=== PATIENT | male | born 1965 | race Caucasian/White ===

== ENCOUNTER 2017-10-01 13:48 | Inpatient (IN) | payer BC ==
[2017-10-01 14:26] LABS: #Basophils 0.1 thou/uL (0.0-0.2); #Eosinphils 0.4 thou/uL (0.0-0.7); #Monocytes 0.9 thou/uL (0.11-0.59); #Neutrophils 6.5 thou/uL (1.40-6.50); %Basophils 1.2 % (0.0-1.0); %Eosinophils 3.6 % (0.0-10.0); %Lymphocytes 33.3 % (21.0-51.0); %Monocytes 7.4 % (0.0-10.0); Hematocrit 45.4 % (42.0-52.0); Mean Platelet Volume 7.1 fL (7.4-10.4); Red Blood Cell (RBC) Count 4.59 mill/uL (4.70-6.10); White Blood Cell (WBC) Count 11.9 thou/uL (4.8-10.8)
[2017-10-01 14:47] LABS: Lactic Acid - Sepsis 1.6 mmol/L (0.5-2.2)
--- NOTE | 2017-10-01 14:51 | RAD ---
SINGLE VIEW OF THE CHEST: COMPARISON: None. HISTORY: Atrial fibrillation of new onset. FINDINGS: Single view of the chest shows a normal sized cardiomediastinal silhouette. There is no evidence of c onsolidation, mass, or pleural effusion. Mild degenerative changes are seen in the spine. IMPRESSION: No evidence of acute cardiopulmonary disease. POS: [facility]
[2017-10-01 14:52] LABS: ALT (SGPT) 16 U/L (8-55); AST (SGOT) 20 U/L (5-34); Alkaline Phosphatase 71 U/L (40-150); Anion Gap 15 mmol/L (10-20); BUN (Urea Nitrogen) 9 mg/dL (8.4-25.7); Bilirubin, Total 0.4 mg/dL (0.2-1.2); CK (CPK) 129 U/L (30-200); Calc. Creatinine Clearance 0 mL/min (70-130); Calcium 9.9 mg/dL (7.8-10.44); Carbon Dioxide 27 mmol/L (22-29); Chloride 103 mmol/L (98-107); Estimated GFR-MDRD Greater than 90; Globulin 3.2 g/dL (2.4-3.5); Protein, Total 7.9 g/dL (6.0-8.3)
[2017-10-01 14:57] LABS: Troponin I Less than 0.010 ng/mL (< 0.028)
[2017-10-01] MEDS ORDERED: Enoxaparin Sodium 100 MG/ML SYRINGE ONE (15:41)
--- NOTE | 2017-10-01 17:24 | HP ---
PRIMARY CARE PHYSICIAN: Dr. Diandra Krause. REASON FOR ADMISSION: New onset atrial fibrillation with rapid ventricular response. HISTORY OF PRESENT ILLNESS: A 52-year-old male with history of dyslipidemia, gastroesophageal reflux disease, and paranoia, who was sent by primary care physician for new onset atrial fibrillation. The patient reports that for the last 2 or 3 days, he was experiencing intermittent dizziness spell. He was not feeling any palpitations or chest pain, but he was feeling dizziness. He did not have an y syncopal episode. He denies any orthopnea, PND, leg swelling. He denies any dyspnea on exertion. His symptoms was keep getting worse and that is why he saw his primary care physician today and at t hat time primary care physician did EKG and found with atrial fibrillation with rapid ventricular res ponse and he was directed to go to the emergency room. When he came to the emergency room, he was hy pertensive and was in atrial fibrillation with RVR with heart rate 139. He required Cardizem drip an d after Cardizem drip, his rate was under control. The patient reports that 10 years ago, he had similar type of problem. At that time, he required abl ation by Dr. Gregorio. The patient is periodically following Dr. Keith. The patient denies any exc essive caffeinated products. The patient denies any fever or chills. He denies any thyroid problems . He reports that lately he was experiencing sinus problem, but he denies taking any Claritin-D. The patient denies any urinary tract infection symptoms. He denies any constipation, diarrhea, melen a, hematochezia. He denies any focal motor symptoms. He denies any previous history of diabetes or stroke or TIA. REVIEW OF SYSTEMS: The following complete review of systems was negative, unless otherwise mentioned in the HPI or below: Constitutional: Weight loss or gain, ability to conduct usual activities. Skin: Rash, itching. Eyes: Double vision, pain. ENT/Mouth: Nose bleeding, neck stiffness, pain, tenderness. Cardiovascular: Palpitations, dyspnea on exertion, orthopnea. Respiratory: Shortness of breath, wheezing, cough, hemoptysis, fever or night sweats. Gastrointestinal: Poor appetite, abdominal pain, heartburn, nausea, vomiting, constipation, or diarrh ea. Genitourinary: Urgency, frequency, dysuria, nocturia. Musculoskeletal: Pain, swelling. Neurologic/Psychiatric: Anxiety, depression. Allergy/Immunologic: Skin rash, bleeding tendency. Please see my HPI for pertinent positives and negatives. All other review of system reviewed and neg ative except as mentioned in the HPI. PAST MEDICAL HISTORY: History of atrial fibrillation in the past required ablation, gastroesophageal reflux disease, dyslipidemia. PAST PSYCHIATRIC HISTORY: Anxiety and depression, paranoia. PAST SURGICAL HISTORY: Cardiac ablation for atrial fibrillation. SOCIAL HISTORY: Patient drinks 3 beers on a daily basis. He smokes about 1 pack per day. He denies any illicit drug abuse. FAMILY HISTORY: Positive for coronary artery disease to both parents. ALLERGIES: No known drug allergies. CURRENT HOME MEDICATIONS: Risperidone 4 mg p.o. daily, lorazepam 1 mg p.o. daily and Lipitor 40 mg p .o. daily, Nexium 40 mg p.o. daily. EMERGENCY ROOM COURSE: Patient is given Lovenox 1 mg per kg, aspirin 324 mg and Cardizem 20 mg bolus and 5 mg per hour drip was started. PHYSICAL EXAMINATION: VITAL SIGNS: On arrival, blood pressure 164/92, pulse 139 and irregular, respiratory rate 18, temper ature 98.2, saturation 97% on room air, weight 88.4 kilograms. GENERAL: Patient is currently alert, oriented, no acute distress. HEENT: Head is normocephalic, atraumatic. Eyes: Pupils round, reactive to light. Extraocular musc les intact. ENT: Oropharynx within normal limits. Moist mucous membranes. No oral lesions. No pharyngeal eryt marlys, no exudate. NECK: Supple, no JVD, no thyromegaly, no carotid bruit. LUNGS: Clear to auscultation without any rhonchi or rales. CARDIAC: S1 and S2 irregularly irregular. No murmur, no gallop, no rub. ABDOMEN: Soft, bowel sounds present, nontender, nondistended. No organomegaly, no mass, no suprapub ic tenderness. BACK: Unremarkable, no CVA tenderness. EXTREMITIES: Upper extremity passive movement of all joints are normal. Lower extremities: No bunny a. Good peripheral pulsation. SKIN: No skin rash. HEMATOLOGICAL: No lymphadenopathy. PSYCHIATRIC: Normal affect. NEUROLOGIC: The patient is moving all 4 limbs. Cranial nerves II-XII intact. No focal neurological deficit noted. SIGNIFICANT LABS: EKG based on my review, atrial fibrillation with rapid ventricular response. Ches t x-ray based on my review, no acute cardiopulmonary process. CBC: WBC 11.9, hemoglobin 15.3, plate lets 359, MCV 99.0, BMP: Sodium 141, potassium 3.6, chloride 103, carbon dioxide 27, BUN 9, creatini ne 0.82, anion gap 15, glucose 119, calcium 9.9. Lactic acid 1.6. LFT: AST 20, ALT 16, alkaline ph osphatase 71, albumin 4.7. CK 129, CK-MB 1.5, troponin I less than 0.010. BNP 61.5. TSH 1.55. ASSESSMENT AND PLAN: 1. Atrial fibrillation with rapid ventricular response. This patient has a remote history of atrial arrhythmia, requiring ablation. At this point, the patient has dizziness and atrial fibrillation wi th RVR. The patient is not on any specific medication. Based on CHADS2 score, patient has one or tw o point. At this point, we will start Lovenox 1 mg per kg subcu twice daily for anticoagulation ther apy. Upon discharge, we will consider chronic anticoagulation therapy with Eliquis. We will also co ntinue aspirin 325 mg p.o. daily. The patient's thyroid function test is normal. We will consult Ca rdiology per patient's request. We will obtain echocardiography and will rule out acute coronary syn drome with serial cardiac enzymes. We will monitor on telemetry floor. We will continue Cardizem dr ip at 5 mg per hour. 2. Gastroesophageal reflux disease. We will continue Protonix 40 mg p.o. daily. 3. Dyslipidemia. We will continue Lipitor 40 mg p.o. at bedtime and check lipid profile tomorrow mo rning. 4. Anxiety, depression with paranoia, we will continue risperidone 4 mg p.o. daily and Ativan 1 mg p .o. q.4 hourly p.r.n. 5. Tobacco abuse disorder. Smoking cessation counseling given. Healthy lifestyle measures discusse d with the patient. 6. Alcohol use. Patient is advised to avoid alcohol products. 7. Deep venous thrombosis prophylaxis. Patient is already on full dose of Lovenox therapy. 8. Gastrointestinal prophylaxis. Protonix 40 mg p.o. daily. CODE STATUS: The patient is FULL CODE. The patient is making his own decisions. Disposition plan based on clinical course. We are expecting patient's stay in hospital more than 2 m idnights. Plan of care discussed with the patient and family member at bedside in the emergency room in detail.
[2017-10-01 17:59] LABS: Troponin I Less than 0.010 ng/mL (< 0.028)
[2017-10-01] MEDS ORDERED: Ondansetron HCl/PF 4 MG/2 ML Vial IVP PRN (18:18)
[2017-10-01] MEDS ORDERED: Milk Of Magnesia 30 ML UDCUP PO PRN (18:18)
[2017-10-01] MEDS ORDERED: Lorazepam 1 MG TAB PO PRN (18:18)
[2017-10-01] MEDS ORDERED: Loperamide HCl 2 MG CAP PO PRN (18:18)
[2017-10-01] MEDS ORDERED: hydrALAZINE 20 MG/ML VIAL SLOW IVP PRN (18:18)
[2017-10-01] MEDS ORDERED: HYDROcodone/Acetaminophen 5/325 mg Tablet PO PRN (18:18)
[2017-10-01] MEDS ORDERED: Loratadine 10 MG TAB PO PRN (18:18)
[2017-10-01] MEDS ORDERED: Zolpidem Tartrate 5 MG TAB PO PRN (18:18)
[2017-10-01] MEDS ORDERED: Sodium Chloride 0.65% Nasal 44 ML BOT EA NARE PRN (18:18)
[2017-10-01] MEDS ORDERED: Artificial Tears 18 DROP/0.9 ML EA EYE PRN (18:18)
[2017-10-01] MEDS ORDERED: Mag-Al 1200 mg/1200 mg/30 ML UDCUP PO PRN (18:18)
[2017-10-01] MEDS ORDERED: Diabetic Tussin 200 MG/10 ML UDCUP PO PRN (18:18)
[2017-10-01] MEDS ORDERED: Ondansetron ODT 4 MG TAB PO PRN (18:18)
[2017-10-01] MEDS ORDERED: Senokot 8.6 MG TAB PO PRN (18:18)
[2017-10-01] MEDS ORDERED: Acetaminophen 325 MG TAB PO PRN (18:18)
[2017-10-01] MEDS ORDERED: Eucerin (Mineral Oil/Petrolatum,White) 30 gm Jar TOP PRN (18:18)
[2017-10-01] MEDS ORDERED: Chloraseptic Spray 180 ml Bottle PO PRN (18:18)
[2017-10-01] MEDS: Atorvastatin Calcium 40 MG TAB PO SCH (20:44)
[2017-10-01 20:47] LABS: Troponin I Less than 0.010 ng/mL (< 0.028)
[2017-10-02 00:26] LABS: Bilirubin Negative (Negative); Blood, Urine Negative (Negative); Glucose, Urine (Dipstick) Negative (Negative); Ketone, Urine Negative (Negative); Nitrite Negative (Negative); Protein, Urine (Dipstick) Negative (Neg-Trace); Urobilinogen 0.2 mg/dL (0.2-1.0)
[2017-10-02 00:29] LABS: Bacteria/HPF None Seen HPF (None Seen); Hyaline Casts/LPF 0-3 HYALINE CAST LPF (0-3 Hyaline); RBC/HPF 0-3 HPF (0-3); Squamous Epithelial None Seen HPF (0-3); WBC/HPF None Seen HPF (0-3)
[2017-10-02 00:58] LABS: Amphetamine Not Detected (NotDetected); Methadone Not Detected (NotDetected); Methamphetamine Not Detected (NotDetected)
[2017-10-02 04:52] LABS: #Basophils 0.1 thou/uL (0.0-0.2); #Eosinphils 0.5 thou/uL (0.0-0.7); #Lymphocytes 3.6 thou/uL (1.20-3.40); #Monocytes 0.8 thou/uL (0.11-0.59); #Neutrophils 6.2 thou/uL (1.40-6.50); %Basophils 0.6 % (0.0-1.0); %Eosinophils 4.3 % (0.0-10.0); %Lymphocytes 32.6 % (21.0-51.0); %Monocytes 7.1 % (0.0-10.0); Hematocrit 41.7 % (42.0-52.0); Mean Platelet Volume 7.4 fL (7.4-10.4); Red Blood Cell (RBC) Count 4.22 mill/uL (4.70-6.10); White Blood Cell (WBC) Count 11.1 thou/uL (4.8-10.8)
[2017-10-02 05:06] LABS: Anion Gap 11 mmol/L (10-20); BUN (Urea Nitrogen) 13 mg/dL (8.4-25.7); Calc. Creatinine Clearance 143 mL/min (70-130); Calcium 9.4 mg/dL (7.8-10.44); Carbon Dioxide 24 mmol/L (22-29); Chloride 106 mmol/L (98-107); Cholesterol 155 mg/dl (< 200 Desired); Estimated GFR-MDRD Greater than 90; LDL Cholesterol, Calculated 71 mg/dL
[2017-10-02 05:44] VITALS: BMI 22.1
[2017-10-02] MEDS ORDERED: Aspirin 325 MG TAB PO SCH (09:00)
[2017-10-02] MEDS ORDERED: risperiDONE 1 MG TAB PO SCH ×2 (09:00→21:00)
--- NOTE | 2017-10-02 10:09 | PDOC.PN ---
- Subjective Encounter Start Date: 10/02/17 Encounter Start Time: 08:00 -: old records requested/rev Patient seen and examined. No new complaints. No overnight events pt asking for amoxycilline for his sinus problem he converted to NSR at 4 AM - Objective Resuscitation Status: Resuscitation Status FULL:Full Resuscitation MAR Reviewed: Yes Vital Signs & Weight: Vital Signs (12 hours) Temp Pulse Resp BP Pulse Ox 10/02/17 04:00 98.5 F 75 19 104/69 99 10/02/17 00:00 74 16 105/68 Weight Weight 181 lb 12.8 oz I&O: 10/01/17 10/02/17 10/03/17 06:59 06:59 06:59 Intake Total 540 Output Total 450 Balance 90 Result Diagrams: 10/02/17 04:19 10/02/17 04:19 EKG Reviewed by me: Yes (NSR) Phys Exam - Physical Examination Constitutional: NAD HEENT: PERRLA, moist MMs, sclera anicteric Neck: no JVD, supple Respiratory: no wheezing, no rales, no rhonchi Cardiovascular: RRR, no significant murmur, no rub Gastrointestinal: soft, non-tender, no distention Musculoskeletal: no edema, pulses present Neurological: non-focal, normal sensation, moves all 4 limbs Lymphatic: no nodes Psychiatric: normal affect, A&O x 3 Skin: no rash, normal turgor Dx/Plan (1) Atrial fibrillation with RVR Code(s): I48.91 - UNSPECIFIED ATRIAL FIBRILLATION Status: Acute Comment: converted to NSR (2) Alcohol abuse Code(s): F10.10 - ALCOHOL ABUSE, UNCOMPLICATED Status: Chronic (3) Anxiety and depression Code(s): F41.8 - OTHER SPECIFIED ANXIETY DISORDERS Status: Chronic (4) Diabetes type 2, controlled Code(s): E11.9 - TYPE 2 DIABETES MELLITUS WITHOUT COMPLICATIONS Status: Chronic (5) Paranoia Code(s): F22 - DELUSIONAL DISORDERS Status: Chronic (6) Tobacco abuse Code(s): Z72.0 - TOBACCO USE Status: Chronic - Plan cont current plan of care, plan discussed w/ family * will start cardizem CD 120 mg po daily * will wean off cardizem drip today and observe another 24 hour off the drip on monitor * medication reviewed as below * symptomatic treatment * echo pending * cardiology input pending * otherwise stable * anticoagulation machine long goods helper will defer to cardiology * discussed with . Review of Systems - Review of Systems ENT: negative: Ear Pain, Ear Discharge, Nose Pain, Nose Discharge, Nose Congestion, Mouth Pain, Mouth Swelling, Throat Pain, Throat Swelling, Other Respiratory: negative: Cough, Dry, Shortness of Breath, Hemoptysis, SOB with Excertion, Pleuritic Pain, Sputum, Wheezing Cardiovascular: negative: Chest Pain, Palpitations, Orthopnea, Paroxysmal Noc. Dyspnea, Edema, Light Headedness, Other Gastrointestinal: negative: Nausea, Vomiting, Abdominal Pain, Diarrhea, Constipation, Melena, Hematochezia, Other Genitourinary: negative: Dysuria, Frequency, Incontinence, Hematuria, Retention , Other Musculoskeletal: negative: Neck Pain, Shoulder Pain, Arm Pain, Back Pain, Hand Pain, Leg Pain, Foot Pain, Other Skin: negative: Rash, Lesions, Arsh, Bruising, Other - Medications/Allergies Allergies/Adverse Reactions: Allergies Allergy/AdvReac Type Severity Reaction Status Date / Time No Known Allergies Allergy Verified 10/01/17 18:13 Medications: Current Medications Acetaminophen (Tylenol) 650 mg PO Q4H PRN PRN Reason: Headache/Fever or Pain Hydrocodone Bitart/Acetaminophen (Spur 5/325) 1 tab PO Q4H PRN PRN Reason: Moderate Pain (4-6) Al Hydroxide/Mg Hydroxide (Maalox) 30 ml PO Q6H PRN PRN Reason: Heartburn or Indigestion Amoxicillin (Amoxil) 500 mg PO TID [facility] Artificial Tears (Tears Naturale) 0 drop EA EYE PRN PRN PRN Reason: Dry Eyes Aspirin (Aspirin) 325 mg PO DAILY [facility] [place] Last Admin: 10/02/17 09:54 Dose: 325 mg Atorvastatin Calcium (Lipitor) 40 mg PO HS [facility] [place] Last Admin: 10/01/17 20:44 Dose: 40 mg Guaifenesin (Robitussin Sf) 200 mg PO Q4H PRN PRN Reason: Cough Hydralazine HCl (Apresoline) 10 mg SLOW IVP Q4H PRN PRN Reason: Systolic BP > 180 Diltiazem HCl 125 mg/ Sodium (Chloride) 125 mls @ 5 mls/hr IVPB INF HARMAN; 5 MG/ HR PRN Reason: Protocol Loperamide HCl (Imodium) 2 mg PO PRN PRN PRN Reason: Diarrhea/Loose Stools Loratadine (Claritin) 10 mg PO DAILYPRN PRN PRN Reason: Sinus Symptoms Lorazepam (Ativan) 1 mg PO HS [facility] [place] Magnesium Hydroxide (Milk Of Magnesium) 30 ml PO DAILYPRN PRN PRN Reason: Constipation Metformin HCl (Glucophage) 500 mg PO HS [facility] [place] Mineral Oil/White Petrolatum (Eucerin Cream) 0 gm TOP BIDPRN PRN PRN Reason: Dry Skin Ondansetron HCl (Zofran Odt) 4 mg PO Q6H PRN PRN Reason: Nausea/Vomiting Ondansetron HCl (Zofran) 4 mg IVP Q6H PRN PRN Reason: Nausea/Vomiting Pantoprazole Sodium (Protonix) 40 mg PO DAILY [facility] [place] Last Admin: 10/02/17 09:54 Dose: 40 mg Phenol (Chloraseptic [place] 180 Ml Bot) 0 ml PO PRN PRN PRN Reason: Sore Throat Risperidone (Risperidone) 1 mg PO HS [facility] [place] Senna (Senokot) 2 tab PO HSPRN PRN PRN Reason: Constipation Sodium Chloride ([place] Nasal [place] 0.65%) 0 ml EA NARE QIDPRN PRN PRN Reason: Nasal Congestion Sodium Chloride (Flush - Normal Saline) 10 ml IVF Q12HR [facility] [place] Last Admin: 10/02/17 09:54 Dose: Not Given Sodium Chloride (Flush - Normal Saline) 10 ml IVF PRN PRN PRN Reason: Saline Flush Zolpidem Tartrate (Ambien) 5 mg PO HSPRN PRN PRN Reason: Insomnia
--- NOTE | 2017-10-02 14:05 | CON ---
DATE OF CONSULTATION: 10/02/2017 HISTORY OF PRESENT ILLNESS: Raymon Aviles is a 52-year-old white male that I apparently saw approximately 10 years ago for evaluation of supraventricular tachycardia. Those records are unavailable at this time. He ultimately underwent radiofrequency ablation of his SVT by Dr. Gregorio in 08/2007. He has not had any documented arrhythmias since that time. Over the last 2-3 days, he has had upper respiratory infection and he states that he has a sinus infection. He also has noted over the last 2-3 days, he had episodes of intermittent extreme lightheadedness. He feels as if he might blackout. Ultimately went to see his primary care physician yesterday and was found to be in atrial fibrillation with fast ventricular response. He was referred to the emergency room. He was started on a Cardizem drip which slowed his rate and ultimately at 4:00 a.m. this morning, he converted to sinus rhythm. He denied any palpitations, chest pain, shortness of breath, his only symptom was lightheadedness. He also denies any fevers, chills or rigors. He denies any cough. He also denies taking any decongestants or vasoactive nasal sprays. He does use Flonase at home. PAST MEDICAL HISTORY: Hypercholesterolemia, diabetes, GERD, anxiety, depression , and paranoia. MEDICATIONS: At home include atorvastatin 40 mg at bedtime, Nexium 40 mg at bedtime, Ativan 1 mg at bedtime, metformin 500 mg at bedtime, and risperidone 1 mg at bedtime. ALLERGIES: None. OPERATIONS: Nothing except radiofrequency ablation of his supraventricular tachycardia in 08/2007. SOCIAL HISTORY: He smokes 1 pack per day. He drinks 3 beers per day. FAMILY HISTORY: Mother of myocardial infarction at age 72. REVIEW OF SYSTEMS: Twelve point review of systems otherwise unremarkable. PHYSICAL EXAMINATION: VITAL SIGNS: 110/69, pulse 67 and regular. HEENT: PERRL. NECK: Supple. CHEST: Clear. CARDIAC: S1 and S2 are normal, without any S3, S4 or murmurs. Carotid upstrokes are normal without bruits. ABDOMEN: Normal bowel sounds, without tenderness or organomegaly. EXTREMITIES: Revealed no clubbing, cyanosis or edema. NEUROLOGIC: Grossly intact. SKIN: Warm and dry. IMAGING DATA AND LABORATORY DATA: EKG reveals atrial fibrillation with fast ventricular response of 136 per minute. Hemoglobin 14.0, hematocrit 41.7, white count 11,100, and platelets 321,000. Sodium 137, potassium 4.0, chloride 106, carbon dioxide 24, BUN 13, creatinine 0.74. Cardiac enzymes are negative x3. Cholesterol 155, triglycerides 203, HDL 43, and LDL 71. TSH is normal. Glucose up to 119. IMPRESSION: 1. New onset atrial fibrillation. 2. History of supraventricular tachycardia ablation in 08/2007. 3. Diabetes. 4. Hypercholesterolemia. 5. Smoker. 6. Positive family history. 7. ETOH use, 3 beers per day. 8. Anxiety, depression with paranoia. RECOMMENDATIONS: Mr. Aviles has been started on p.o. Cardizem and the Cardizem drip is being tapered. I do agree with anticoagulation at this point since he probably had atrial fibrillation for several days. He will be started on Xarelto 20 mg daily. He will be monitored for 1 more day and has felt that he could be discharged on 10/03/2017. MICKIE
[2017-10-02] MEDS: AMOXicillin 250 MG CAP PO SCH ×2 (14:56→21:45)
[2017-10-02] MEDS ORDERED: Rivaroxaban 10 MG TAB PO SCH (18:00)
[2017-10-02] MEDS ORDERED: metFORMIN 500 MG TAB PO SCH (21:00)
[2017-10-02] MEDS ORDERED: Lorazepam 1 MG TAB PO SCH (21:00)
[2017-10-02] MEDS ORDERED: Non-Formulary Item 1 EACH (Metformin Hcl [Metformin Hcl] 500 MG) PO SCH (21:00)
[2017-10-02] MEDS: Atorvastatin Calcium 40 MG TAB PO SCH (21:45)
[2017-10-03 07:39] VITALS: BP 111/74; TEMP 98
[2017-10-03] MEDS: AMOXicillin 250 MG CAP PO SCH (09:08)
--- NOTE | 2017-10-03 10:39 | DIS ---
DATE OF ADMISSION: 10/01/2017 DATE OF DISCHARGE: 10/03/2017 PRIMARY CARE PHYSICIAN: Dr. Dianrda Krause. DISCHARGE DISPOSITION: Home. PRIMARY DISCHARGE DIAGNOSIS: Atrial fibrillation with rapid ventricular response converted to normal sinus rhythm. SECONDARY DISCHARGE DIAGNOSES: Tobacco abuse, paranoia, diabetes type 2, anxiety, depression, alcoho l abuse. PRIMARY PROCEDURE/OPERATION: None. RADIOLOGICAL INVESTIGATION: Chest x-ray normal. Echocardiography showed normal EF. SIGNIFICANT LABORATORY DATA: WBC 11.1, hemoglobin 14.0, platelets 321. Sodium 137, potassium 4.0, B UN 13, creatinine 0.74, calcium 9.4, LDL 71, HDL 43. Cholesterol 155, triglycerides 203, TSH 1.55. Cardiac enzymes negative x3. Lactic acid 1.6. Urinalysis normal. Urine drug screen negative. DISCHARGE MEDICATIONS: Lipitor 40 mg p.o. at bedtime, Cardizem CD 120 mg p.o. daily, Nexium 40 mg p. o. at bedtime, Ativan 1 mg p.o. at bedtime, metformin 500 mg p.o. at bedtime, risperidone 1 mg p.o. a t bedtime and Xarelto 20 mg p.o. daily. CONTRAINDICATIONS: None. CODE STATUS: FULL CODE. INPATIENT CONSULTANTS: Dr. Neftaly Keith was consulted. TEST RESULTS PENDING ON DISCHARGE: None. ALLERGIES: No known drug allergy. DISCHARGE PLAN: Post hospital, the patient will follow up with Dr. Keith as instructed. HOSPITAL COURSE: A 52-year-old male with the above mentioned medical problem, who has history of atr ial fibrillation, required ablation 10 years ago and since then he was doing well up until for the la st couple of days he was experiencing dizziness and that is why he went to see primary care physician , who ordered EKG and patient was found with atrial fibrillation with RVR and that is why he was advi sed to go to the emergency room. In the emergency room, he was in atrial fibrillation with RVR. He required a Cardizem bolus and Cardizem drip. He was admitted to Telemetry floor. We did echocardiog cuco that came back normal. The patient was converted to normal sinus rhythm during night. Cardize m drip was discontinued. The patient was requiring anticoagulation therapy and that is why we prescr ibed Xarelto. Cardiology evaluated this patient while in hospital. At this point, the patient is in sinus rhythm. We are starting Cardizem CD head as well as we are also giving prescription for Xarel to. The patient is completely asymptomatic. Cardiology cleared him for discharge. He will follow up wit h primary care physician and Cardiology after discharge. Patient is seen and examined at bedside micheal mallory. Plan of care discussed with the family member. PHYSICAL EXAMINATION: VITAL SIGNS: Currently, temperature 98.0, pulse 74, blood pressure 111/74, respiratory rate 16, satu ration 94%. Weight 180 pounds. GENERAL: The patient is currently alert, awake, no acute distress. HEAD: Normocephalic, atraumatic. EYES: Pupils round, reactive to light. Extraocular muscle intact. ENT: Oropharynx within normal limits. Moist mucous membranes. No oral lesions. No pharyngeal eryt marlys. No exudate. NECK: Supple, no JVD, no thyromegaly, no carotid bruit. No jugular venous distention. LUNGS: Clear to auscultation without any rhonchi or rales. CARDIAC: S1, S2 regular without any murmur. ABDOMEN: Soft and benign. EXTREMITIES: No edema. NEUROLOGIC: Nonfocal examination. REVIEW OF SYSTEMS: Reviewed with him and negative. All new medication prescription sent to his pharmacy. Patient is medically stable for discharge edgar aiken
== END 2017-10-03 10:17 | disposition home or self-care (01) | DRG 310 ==
LOC: ERS 13:48 → 2NO 17:53
PROVIDERS: ADMIT Internal Medicine; ATTEND Internal Medicine
DX: I48.91 Unspecified atrial fibrillation (principal); F22 Delusional disorders; I10 Essential (primary) hypertension; E78.00 Pure hypercholesterolemia, unspecified; K21.9 Gastro-esophageal reflux disease without esophagitis; E11.9 Type 2 diabetes mellitus without complications; F32.9 Major depressive disorder, single episode, unspecified; F41.8 Other specified anxiety disorders; F10.10 Alcohol abuse, uncomplicated; F17.210 Nicotine dependence, cigarettes, uncomplicated; Z82.49 Family history of ischemic heart disease and other diseases of the circulatory system
CPT/HCPCS: 36415; 71010; 80048; 80061; 80306; 81001; 82553; 83605; 83880; 84443; 84484; 85025; 93005; 93010; 93306; 96365; 96372; 96376; A4216; J1650; J7050

== ENCOUNTER 2021-02-25 14:11 | Outpatient (CLI) | payer BC | END 2021-02-25 14:12 | disposition home or self-care (01) | LOC: CTENTCT 14:11 | PROVIDERS: ATTEND Otolaryngology Plastic Surgery within the Head & Neck | DX: J32.8 Other chronic sinusitis (principal) | CPT/HCPCS: 70486 ==

== ENCOUNTER 2021-03-22 14:43 | Outpatient (CLI) | payer BC ==
[2021-03-22 15:45] LABS: Hemoglobin 12.5 g/dL (13.5-17.5); Mean Corpuscular HGB CONC 33.5 g/dL (32.0-36.0); Mean Corpuscular Hemoglobin 30.6 pg (27.0-33.0); Mean Corpuscular Volume 91.2 fl (81.2-95.1); Platelet Count 287 10x3/uL (150-450); RBC Distribution Width 12.8 % (11.5-14.5); Red Blood Cell (RBC) Count 4.09 10x6/uL (4.32-5.72); White Blood Cell (WBC) Count 8.6 10x3/uL (3.5-10.5)
[2021-03-22 15:55] LABS: Anion Gap 15 mmol/L (10-20); BUN (Urea Nitrogen) 15 mg/dL (8.4-25.7); Calc. Creatinine Clearance 0 mL/min (70-130); Calcium 9.7 mg/dL (7.8-10.44); Carbon Dioxide 24 mmol/L (22-29); Chloride 105 mmol/L (98-107); Glucose 129 mg/dL (70-105); Potassium 3.8 mmol/L (3.5-5.1); Sodium 140 mmol/L (136-145)
[2021-03-23 00:20] LABS: SARS-CoV-2 PCR by NAA Not Detected (NotDetected)
== END 2021-03-22 14:44 | disposition home or self-care (01) ==
LOC: LABBT 14:43
PROVIDERS: ATTEND Otolaryngology Plastic Surgery within the Head & Neck
DX: Z01.818 Encounter for other preprocedural examination (principal); J32.8 Other chronic sinusitis; J34.3 Hypertrophy of nasal turbinates; R09.82 Postnasal drip; R51.9 Headache, unspecified; Z20.822 Contact with and (suspected) exposure to COVID-19
CPT/HCPCS: 80048; 85027; 93005; 93010; U0003; U0005

== ENCOUNTER 2021-03-27 10:33 | Day surgery (SDC) | payer BC ==
[2021-03-26 10:41] VITALS: BMI 27.8
[2021-03-27] MEDS ORDERED: AFRIN NASAL MIST 15 ML BOT ONE ×2 (11:01→12:14)
[2021-03-27] MEDS ORDERED: Lidocaine 1% w/Epinephrine 1:100K 20 ML VIAL ONE (12:14)
[2021-03-27] MEDS ORDERED: Fentanyl 100 MCG/2 ML VIAL ONE ×3 (12:30→14:08)
[2021-03-27] MEDS ORDERED: Famotidine/PF 20 mg/2ml Vial ONE (12:30)
[2021-03-27] MEDS ORDERED: Dexamethasone 20 MG/5 ML VIAL ONE (12:32)
[2021-03-27] MEDS ORDERED: Lidocaine 1% PF 5 ML VIAL ONE (12:32)
[2021-03-27] MEDS ORDERED: Ondansetron PF 4 MG/2 ML Vial ONE (12:32)
[2021-03-27] MEDS ORDERED: PHENYLEPHRINE-NS 100 MCG/ML 10 ML SYRINGE ONE (12:32)
[2021-03-27] MEDS ORDERED: Metoclopramide HCl 10 MG/2 ML VIAL ONE (12:32)
[2021-03-27] MEDS ORDERED: PROPOFOL 200 MG/20 ML VIAL ONE (12:32)
[2021-03-27] MEDS ORDERED: Ketorolac Tromethamine 30 MG/ML VIAL ONE (12:32)
[2021-03-27] MEDS ORDERED: HYDROcodone/Acetaminophen 5/325 mg Tablet ONE (15:00)
== END 2021-03-27 15:40 | disposition home or self-care (01) ==
LOC: SDC 10:33
PROVIDERS: ATTEND Otolaryngology Plastic Surgery within the Head & Neck
PROC: 09BW8ZZ Excision of Right Sphenoid Sinus, Via Natural or Artificial Opening Endoscopic (ICD-10-PCS; principal; 2021-03-27)
PROC: 09BS8ZZ Excision of Right Frontal Sinus, Via Natural or Artificial Opening Endoscopic (ICD-10-PCS; principal; 2021-03-27)
PROC: 09BR8ZZ Excision of Left Maxillary Sinus, Via Natural or Artificial Opening Endoscopic (ICD-10-PCS; principal; 2021-03-27)
PROC: 09BT8ZZ Excision of Left Frontal Sinus, Via Natural or Artificial Opening Endoscopic (ICD-10-PCS; principal; 2021-03-27)
PROC: 09TU8ZZ Resection of Right Ethmoid Sinus, Via Natural or Artificial Opening Endoscopic (ICD-10-PCS; principal; 2021-03-27)
PROC: 8E09XBZ Computer Assisted Procedure of Head and Neck Region (ICD-10-PCS; principal; 2021-03-27)
PROC: 09TV8ZZ Resection of Left Ethmoid Sinus, Via Natural or Artificial Opening Endoscopic (ICD-10-PCS; principal; 2021-03-27)
PROC: 09BQ8ZZ Excision of Right Maxillary Sinus, Via Natural or Artificial Opening Endoscopic (ICD-10-PCS; principal; 2021-03-27)
PROC: 09BX8ZZ Excision of Left Sphenoid Sinus, Via Natural or Artificial Opening Endoscopic (ICD-10-PCS; principal; 2021-03-27)
PROC: 09TL8ZZ Resection of Nasal Turbinate, Via Natural or Artificial Opening Endoscopic (ICD-10-PCS; principal; 2021-03-27)
DX: J30.89 Other allergic rhinitis (principal); J32.9 Chronic sinusitis, unspecified; J33.8 Other polyp of sinus; J34.3 Hypertrophy of nasal turbinates; J34.89 Other specified disorders of nose and nasal sinuses; E78.00 Pure hypercholesterolemia, unspecified; E11.9 Type 2 diabetes mellitus without complications; Z87.891 Personal history of nicotine dependence; Z79.01 Long term (current) use of anticoagulants; Z79.899 Other long term (current) drug therapy
CPT/HCPCS: 88305; J1100; J1885; J2405; J2704; J2765; J3010; S0028